=== PATIENT | female | born 1990 | race Caucasian/White ===

== ENCOUNTER → 2017-04-06 | Outpatient (CLI) | payer BC | END | disposition home or self-care (01) | LOC: GMA 16:28 | PROVIDERS: ATTEND Nurse Practitioner Family | DX: R50.9 Fever, unspecified (principal) ==

== ENCOUNTER 2019-03-20 15:28 | Inpatient (IN) | payer BC ==
[2019-03-20] MEDS ORDERED: SODIUM CHLORIDE 0.9% 1000ML 1,000 ML IVS ONE (15:37)
[2019-03-20] MEDS ORDERED: MORPHINE SULFATE INJ 10 MG/ML VIAL IV ONE ×3 (15:37→16:26)
[2019-03-20] MEDS ORDERED: ONDANSETRON ODT 8 MG TAB SL ONE (15:38)
--- NOTE | 2019-03-20 15:42 | ED.PDOC ---
History of Present Illness - General Chief Complaint: Abdominal Pain Stated Complaint: abdominal pain Time Seen by Provider: 03/20/19 15:37 Information Source: patient, family Exam Limitations: no limitations - History of Present Illness Abdominal Pain Onset Location: periumbilical Pain Radiation: no radiation Quality: severe, sharpness Timing/Duration: 1/2 hour Improving Factors: nothing Worsening Factors: movement Associated Symptoms: denies symptoms Review of Systems - Review of Systems Constitutional: States: no symptoms reported. Denies: chills, fever EENTM: States: no symptoms reported. Denies: blurred vision, nose congestion, throat pain Respiratory: States: no symptoms reported. Denies: cough, short of breath Cardiology: States: no symptoms reported. Denies: palpitations Gastrointestinal/Abdominal: States: abdominal pain. Denies: constipation, diarrhea, nausea, vomiting Genitourinary: States: no symptoms reported. Denies: dysuria, hematuria Musculoskeletal: States: no symptoms reported Skin: States: no symptoms reported Past Medical History (General) - Patient Medical History Hx Seizures: No Hx Stroke: No Hx Dementia: No Hx Asthma: No Hx of COPD: No Hx Cardiac Disorders: No Hx Congestive Heart Failure: No Hx Pacemaker: No Hx Hypertension: Yes Hx Thyroid Disease: No Hx Diabetes: No Hx Gastroesophageal Reflux: No Hx Renal Disease: No Hx Cancer: No Hx of HIV: No Hx Hepatitis C: No Hx MRSA: No Surgical History: other - Vaccination History Hx Tetanus, Diphtheria Vaccination: No Hx Influenza Vaccination: Yes Hx Pneumococcal Vaccination: No - Social History Hx Tobacco Use: No Hx Chewing Tobacco Use: No Hx Alcohol Use: No Hx Substance Use: No Hx Substance Use Treatment: No Hx Depression: No Hx Physical Abuse: No Hx Emotional Abuse: No Hx Suspected Abuse: No - Female History Patient : No Family Medical History - Family History Father Living Status: Still Living Hx Family Hypertension: Yes Hx Family Diabetes: Yes Grandparents Living Status: Still Living Hx Cardiac Disease: Yes Mother Living Status: Still Living Hx Family Hypertension: Yes Hx Family;Other: polystistic kidney disease Physical Exam - Physical Exam General Appearance: Obvious distress Eyes, Ears, Nose, Throat Exam: PERRL/EOMI, normal ENT inspection, TMs normal Neck: non-tender, full range of motion, supple, normal inspection Respiratory: chest non-tender, lungs clear, normal breath sounds, no respiratory distress Cardiovascular/Chest: normal peripheral pulses, no edema, no JVD, no murmur, tachycardia Peripheral Pulses: No deficit Gastrointestinal/Abdominal: abnormal bowel sounds - hypoactive, distended, tenderness - TTP periumbilical area with ?mass vs hernia umbilical area Progress - Progress Progress: 03/20/19 16:19 CT results examined (official report pending) CT consistent with exam of incarcerated umbilical hernia. Surgery Dr. Jernigan consult called and he is on his way. Morphine written for pain 03/20/19 16:21 03/20/19 16:59 Surgery consult was able to get it reduced but is concerned with this being a recurrence and because of the severity of the incarceration that it will need to be done urgently. She is to be admitted and surgery to be done tomorrow or soon er if recurs. call center manager ALETHEA Shaw called and will admit. - Results/Orders Results/Orders: 03/20/19 15:37 Abdoment/Pelvis w/o Contrast [CT] Stat Sodium Chloride 0.9% 1000ML [Ns 1000 ml] 1,000 ml IVS ONCE Laboratory Results WBC 6.8 K/mm3 (4.8-10.8) 03/20/19 15:42 RBC 4.17 M/mm3 (4.20-5.40) L 03/20/19 15:42 Hgb 13.6 gm/dL (12.0-16.0) 03/20/19 15:42 Hct 38.9 % (36.0-47.0) 03/20/19 15:42 MCV 93.3 fl (81.0-99.0) 03/20/19 15:42 MCH 32.6 pg (27.0-31.0) H 03/20/19 15:42 MCHC 35.0 g/dL (33.0-37.0) 03/20/19 15:42 RDW 12.5 % (11.5-14.5) 03/20/19 15:42 Plt Count 272 K/mm3 (130-400) 03/20/19 15:42 MPV 7.2 fl (7.40-10.4) L 03/20/19 15:42 Absolute Neuts (auto) 3.70 K/uL (1.8-6.8) 03/20/19 15:42 Absolute Lymphs (auto) 2.40 K/uL (1.0-3.4) 03/20/19 15:42 Absolute Monos (auto) 0.60 K/uL (0.2-0.8) 03/20/19 15:42 Absolute Eos (auto) 0.10 K/uL (0.0-0.4) 03/20/19 15:42 Absolute Basos (auto) 0.00 K/uL (0.0-0.1) 03/20/19 15:42 Neutrophils % 54.0 % (42.0-78.0) 03/20/19 15:42 Lymphocytes % 35.4 % (20.0-50.0) 03/20/19 15:42 Monocytes % 8.1 % (2.0-9.0) 03/20/19 15:42 Eosinophils % 1.8 % (1.0-5.0) 03/20/19 15:42 Basophils % 0.7 % (0.0-2.0) 03/20/19 15:42 Sodium 136 mmol/L (135-145) 03/20/19 15:42 Potassium 3.8 mmol/L (3.6-5.0) 03/20/19 15:42 Chloride 103 mmol/L (101-111) 03/20/19 15:42 Carbon Dioxide 22 mmol/L (21-31) 03/20/19 15:42 Anion Gap 14.8 (12-18) 03/20/19 15:42 BUN 19 mg/dL (7-18) H 03/20/19 15:42 Creatinine 0.86 mg/dL (0.6-1.3) 03/20/19 15:42 BUN/Creatinine Ratio 22.1 (10-20) H 03/20/19 15:42 Random Glucose 101 mg/dL (70-105) 03/20/19 15:42 Serum Osmolality 274.4 mOsm/L (275-295) L 03/20/19 15:42 Calcium 9.3 mg/dL (8.4-10.2) 03/20/19 15:42 Total Bilirubin 0.4 mg/dL (0.2-1.0) 03/20/19 15:42 AST 21 IU/L (10-42) 03/20/19 15:42 ALT 18 IU/L (10-60) 03/20/19 15:42 Alkaline Phosphatase 39 IU/L (42-121) L 03/20/19 15:42 Serum Total Protein 7.3 gm/dL (6.4-8.2) 03/20/19 15:42 Albumin 4.3 g/dl (3.2-5.5) 03/20/19 15:42 Globulin 3.0 gm/dL (2.3-3.5) 03/20/19 15:42 Albumin/Globulin Ratio 1.4 (1.1-1.9) 03/20/19 15:42 Serum HCG, Qual Negative (NEGATIVE) 03/20/19 15:42 Patient Name: QUYNH BECK Gender: Female Date of : 1990 Referring Physician: JOSE MIGUEL SUERO Organization: [facility] Accession Number: [id number] Requested Date: March 20, 2019 15:37 Report Status: Final Requested Procedure: 1 Procedure Description: Abdoment/Pelvis w/o Contrast Modality: CT Findings Reporting MD: Armando Trujillo MD: Not available Dictation Time: Tub Chucker: Not available Rn Paralegal Date: EXAM DESCRIPTION: Abdomen/Pelvis w/o Contrast: Computed Tomography. CLINICAL HISTORY: 28 years Female severe pain incarcerated hernia COMPARISON: None. TECHNIQUE: Spiral-axial scans 2.5 x 2.5 mm intervals through the abdomen and pelvis without oral or IV contrast. Coronal and sagittal 2.0 mm reconstructions. Total Exam DLP: 880.95 mGy-cm. This exam was performed according to our departmental CT dose-optimization program which includes automated exposure control, adjustment of the mA and/or kV according to patient size and/or use of iterative reconstruction technique; to reduce radiation dose to as low as reasonably achievable (ALARA). FINDINGS: Abdominal Wall/Back Soft Tissues: A midline abdominal hernia is noted in the midline raphe measuring approximately 2.2 cm in width and 1.9 cm craniocaudal. A segment of small bowel with mesenteric hernia sac enters the adipose layer. This segment is distended by fluid, with minimal air. Edema in the mesentery within the sac. Edema around the bowel. With outer wall tissue becoming indistinct inferiorly. Sac dimensions 5.1 x 5.2 x 6.8 cm. No fluid collection.. Small Bowel: Minimal fluid and distention of segments proximal to the hernia. No large air-fluid levels. Mesentery: Minimal fatty stranding between the hernia and the stomach abutting the anterior wall. No free air or free fluid in the peritoneum. Terminal Ileum/Cecum: Normal caliber. Normal caliber of the appendix. No inflammatory changes surrounding fat. Colon: Minimal fecal material and gas proximally mostly decompressed remainder of the colon. Pelvic Organs: IUD in customary position in the uterus. Urinary bladder distended with no radiodense stones. Minimal fluid in the cul-de-sac. Ovaries partially visualized. Spine and Bony Pelvis: Negative. Lung bases and pleura: Unremarkable. Liver, stomach, spleen, and adrenal glands: Long axis of the [employer] [address] [place] [address], [address] [place], [place] T [phone] F [phone] [email or web address] - Report exported on Mar 20, 2019 16:47:03 -0500 - Page 2 of 2 right lobe of the liver 20.1 cm. Stomach and remaining solid organs are negative. Pancreas, Gallbladder, and Ducts: Unremarkable. Kidneys and Ureters: Negative. Aorta: Unremarkable. IMPRESSION: 1. Periumbilical hernia which contains mesentery and a segment of small bowel. Edema in the mesentery and around the segment of small bowel which is distended with fluid with slight indistinctness of the outer small bowel wall indicates incarceration and risk for strangulation and obstruction. No free air or free fluid. 2. Minimal hepatomegaly but no ascites or dilated ducts. 3. IUD appears to be customary position and in the endometrium cavity of the superior uterus and fundus. Minimal fluid in the cul-de-sac. Departure - Departure Clinical Impression: Umbilical hernia, incarcerated Disposition: Admit Patient Condition: Fair Departure Forms: ED Discharge - Pt. Copy, Patient Portal Self Enrollment Instructions: DI for Abdominal Pain-Adult Referrals: Stevie Kidd MD [Primary Care Provider] - 1-2 Weeks Home Medications: Ambulatory Orders Labetalol HCl 300 mg PO BID 03/03/15 Decision To Admit - Decistion To Admit Decision to Admit Reason: Admit from ER Decision to Admit Date: 03/20/19 Decision to Admit Time: 17:01
--- NOTE | 2019-03-20 16:46 | CT ---
EXAM DESCRIPTION: Abdomen/Pelvis w/o Contrast: Computed Tomography. CLINICAL HISTORY: 28 years Female severe pain incarcerated hernia COMPARISON: None. TECHNIQUE: Spiral-axial scans 2.5 x 2.5 mm intervals through the abdomen and pelvis without oral or IV contrast. Coronal and sagittal 2.0 mm reconstructions. Total Exam DLP: 880.95 mGy-cm. This exam was performed according to our departmental CT dose-optimization program which includes automated exposure control, adjustment of the mA and/or kV according to patient size and/or use of iterative reconstruction technique; to reduce radiation dose to as low as reasonably achievable (ALARA). FINDINGS: Abdominal Wall/Back Soft Tissues: A midline abdominal hernia is noted in the midline raphe measuring approximately 2.2 cm in width and 1.9 cm craniocaudal. A segment of small bowel with mesenteric hernia sac enters the adipose layer. This segment is distended by fluid, with minimal air. Edema in the mesentery within the sac. Edema around the bowel. With outer wall tissue becoming indistinct inferiorly. Sac dimensions 5.1 x 5.2 x 6.8 cm. No fluid collection.. Small Bowel: Minimal fluid and distention of segments proximal to the hernia. No large air-fluid levels. Mesentery: Minimal fatty stranding between the hernia and the stomach abutting the anterior wall. No free air or free fluid in the peritoneum. Terminal Ileum/Cecum: Normal caliber. Normal caliber of the appendix. No inflammatory changes surrounding fat. Colon: Minimal fecal material and gas proximally mostly decompressed remainder of the colon. Pelvic Organs: IUD in customary position in the uterus. Urinary bladder distended with no radiodense stones. Minimal fluid in the cul-de-sac. Ovaries partially visualized. Spine and Bony Pelvis: Negative. Lung bases and pleura: Unremarkable. Liver, stomach, spleen, and adrenal glands: Long axis of the right lobe of the liver 20.1 cm. Stomach and remaining solid organs are negative. Pancreas, Gallbladder, and Ducts: Unremarkable. Kidneys and Ureters: Negative. Aorta: Unremarkable. IMPRESSION: 1. Periumbilical hernia which contains mesentery and a segment of small bowel. Edema in the mesentery and around the segment of small bowel which is distended with fluid with slight indistinctness of the outer small bowel wall indicates incarceration and risk for strangulation and obstruction. No free air or free fluid. 2. Minimal hepatomegaly but no ascites or dilated ducts. 3. IUD appears to be customary position and in the endometrium cavity of the superior uterus and fundus. Minimal fluid in the cul-de-sac. Electronically signed by: Armando Trujillo MD 03/20/2019 4:44 PM CDT
--- NOTE | 2019-03-20 17:53 | HP ---
SUPERVISING PHYSICIAN: Bladimir Rehman M.D. CHIEF COMPLAINT: Abdominal pain. HISTORY OF PRESENT ILLNESS: This is a 28 year-old female who came to the Emergency Room for severe abdominal pain. The pain was periumbilical in nature. She does have a history of an umbilical hernia. She actually had an umbilical hernia repair about a year ago. She said approximately 2 months ago she had some severe pain but just laid in bed and the pain spontaneously went away. Today, the pain came back severe in nature, quite sharp and would not let up. She felt like she was going to pass out, so she came to the Emergency Room and was seen. In the E. R., CT showed a periumbilical hernia which contained mesentery and segment of small bowel. There was edema in the mesentery and around the segment of small bowel which was distended with fluid and slight indistinctness of the outer small bowel wall indicating incarceration and risk for strangulation and obstruction. The surgeon, Dr. Jernigan, was consulted and actually reduced the hernia in the Emergency Room, and has a plan for surgical intervention tomorrow. However, she can be admitted tonight to be monitored overnight. Her labs were done as well which showed no elevation of white count and an unremarkable chemistry. PAST MEDICAL HISTORY: 1. Hypertension. PAST SURGICAL HISTORY: 1. Tubal ligation. 2. Umbilical hernia repair. 3. IUD placement. CURRENT MEDICATIONS: 1. Labetalol 300 mg b.i.d. ALLERGIES: PEANUT-CONTAINING PRODUCTS. FAMILY HISTORY: Reviewed and noncontributory. SOCIAL HISTORY: No drinking, smoking or illicit drugs. REVIEW OF SYSTEMS: CONSTITUTIONAL: No fever or chills. No recent weight loss or weight gain. HEENT: No headaches, vision changes, ear pain, nasal congestion or throat pain. RESPIRATORY: No cough, hemoptysis or pleuritic chest pain. CARDIOVASCULAR: No chest pain, palpitations or peripheral edema. GASTROINTESTINAL: Positive for some nausea. No vomiting. No diarrhea. No constipation. Positive for abdominal pain as discussed above. GENITOURINARY: No dysuria, frequency or flank pain. MUSCULOSKELETAL: No muscle cramps, joint pain or joint swelling. ENDOCRINE: No polydipsia, polyuria or polyphagia. No heat or cold intolerance. HEMATOLOGIC: No easy bruising or transfusion reaction. NEUROLOGIC: No seizures, syncope or paresthesias. PHYSICAL EXAMINATION: VITAL SIGNS: Blood pressure 127/91, heart rate 69, respiratory rate 20, temperature 96.2, oxygen saturation 100%. GENERAL: Ms. Stinson is a 28 year-old female in no active distress currently. CHEST: Lungs are clear to auscultation bilaterally. CARDIOVASCULAR: Regular rate and rhythm. Normal S1 and S2. ABDOMEN: Soft. Positive bowel sounds. Some slight periumbilical tenderness to palpation, but there is no firmness. No rebound tenderness. GENITOURINARY: Exam is deferred. EXTREMITIES: Lower extremities with no edema. NEUROLOGIC: The patient is alert and oriented. LABORATORY: Labs and films are as discussed in the History of Present Illness. ASSESSMENT: 1. Incarcerated umbilical hernia status post reduction in the Emergency Room. 2. Hypertension. PLAN: Will admit the patient. Can have clear liquids tonight. NPO after midnight. Plan for surgical intervention by Dr. Jernigan tomorrow. I will resume her home medication of Labetalol. Will ensure pain control and if there is any decompensation, will contact Dr. Jernigan. #[id number] [facility]
[2019-03-20] MEDS ORDERED: SODIUM CHLORIDE 0.9% (FLUSH) 10 ML SYG IV PRN (18:40)
[2019-03-20] MEDS ORDERED: MORPHINE SULFATE INJ 10 MG/ML VIAL IV PRN (18:40)
[2019-03-20] MEDS ORDERED: IV SET AND CAP CHANGE INJ INJ SCH (19:00)
[2019-03-20] MEDS: LACTATED RINGERS 1,000 ML IVS PRN (19:30)
[2019-03-21] MEDS ORDERED: SODIUM CHLORIDE 0.9% 1000ML 0 ML ONE (01:57)
[2019-03-21] MEDS: LACTATED RINGERS 1,000 ML IVS PRN (02:03)
[2019-03-21] MEDS ORDERED: KETOROLAC TROMETHAMINE INJ 30 MG/ML VIAL IV ONE (10:00)
[2019-03-21] MEDS ORDERED: DEXAMETHASONE INJ 10 MG/ML VIAL IV ONE (10:00)
[2019-03-21] MEDS ORDERED: ONDANSETRON INJ 4 MG/2 ML VIAL IV ONE (10:00)
[2019-03-21] MEDS ORDERED: ceFAZolin SODIUM 1 GM VIAL IVPB ONE (10:00)
[2019-03-21] MEDS ORDERED: LIDOCAINE 1% 10 ML VIAL INJ ONE (10:00)
[2019-03-21] MEDS ORDERED: PROPOFOL 200 MG/20 ML VIAL IV ONE (10:00)
[2019-03-21] MEDS ORDERED: BUPIVACAINE 0.5% W/EPI 30 ML VIAL INJ ONE ×2 (10:18→11:17)
[2019-03-21] MEDS ORDERED: ONDANSETRON INJ 4 MG/2 ML VIAL ONE (10:49)
[2019-03-21] MEDS ORDERED: fentaNYL CITRATE INJ 50 MCG/ML AMP ONE ×2 (10:50→12:16)
[2019-03-21] MEDS ORDERED: MIDAZOLAM INJ 2 MG/2 ML VIAL ONE (10:50)
[2019-03-21] MEDS ORDERED: ceFAZolin SODIUM 1 GM VIAL INJ ONE (11:05)
[2019-03-21] MEDS ORDERED: LACTATED RINGERS 1,000 ML ONE (11:32)
[2019-03-21] MEDS ORDERED: LACTATED RINGERS 1,000 ML IVS ONE (12:05)
[2019-03-21] MEDS ORDERED: fentaNYL CITRATE INJ 50 MCG/ML AMP IV ONE (12:43)
[2019-03-21 16:00] VITALS: BP 128/85; TEMP 98.6; O2SAT 98
[2019-03-21] MEDS ORDERED: HYDROCOD/APAP 5/325 (ER DISP) #3 TAB PO ONE (18:43)
--- NOTE | 2019-03-22 14:58 | OP ---
DATE OF PROCEDURE: 03/22/19 PREOPERATIVE DIAGNOSIS: 1. Incarcerated incisional hernia. POSTOPERATIVE DIAGNOSIS: 1. Incarcerated incisional hernia. PROCEDURE: 1. Repair of incarcerated incisional hernia. CPT 13246 SURGEON: Stephan Jernigan MD. ANESTHESIA: General and local. FINDINGS: She had an incarcerated incisional hernia. Previous sutures of abraded Nylon were seen. The bowel was viable. There was minimal intraabdominal adhesions. The sac was removed. COMPLICATIONS: None. ESTIMATED BLOOD LOSS: Minimal. Onlay woven Prolene mesh was used. PLAN: Discharge. INDICATION: The patient with a history of a tubal ligation and a hernia repair some time ago. I reviewed that Operative Report and no mesh was used at the time. She presented with a recurrence of the hernia. She came to the Emergency Room yesterday with incarceration of bowel. It was able to be reduced with little difficulty in the Emergency Room, but still at risk for strangulation and even on this morning's exam, it was back although not as tender and firm. Complete informed consent was obtained. PROCEDURE: She was brought Operative Suite and placed in supine position. General anesthesia was induced. She was prepped and draped in sterile fashion. Curvilinear incision was made below the umbilicus. Subcutaneous tissues were taken down. We identified the hernia sac and carefully entered the sac. I was able to reduce the incarcerated contents and take down a few adhesions. The sac was removed to the fascial edges. The defect itself was about 3 to 4 cm. This was then closed transversely with interrupted #1 PDS sutures. We tried the round hernia coded mesh that we have, but it would not lay flat intraabdominally as it did not have a retention ring and to not risk bowel getting up in there, we decided to use an Onlay. After the defect was closed, the finely woven Prolene mesh was trimmed to give us good overlap beyond the apices and laterally and it was secured with Vicryl at the apices, corners and lateral edges for a nice cover. I then used 3-0 Vicryl to close the empty space over it, attaching it to the top of the mesh and then another layer of Vicryl. The skin was closed with a running 4-0 Monocryl. She tolerated the procedure and was then awakened and taken to the Recovery Room in stable condition where she will be discharged post recovery. #[id number] [facility]TDD
--- NOTE | 2019-03-22 16:42 | DS ---
REASON FOR ADMISSION: Incarcerated incisional hernia. CONSULTANTS: Internal Medicine PROCEDURES: Repair of incarcerated incisional hernia. HOSPITAL COURSE: The patient came to the Emergency Room in severe pain and evidence of early obstruction with incarcerated incisional hernia. It was very firm and tender. No overlying skin changes. We were able to reduce it in the Emergency Room to avoid bowel necrosis, but she still needed it fixed as the hernia was persistent and somewhat incarcerated and had a risk of a repeat incarceration, so she was admitted. Then planned to get this repaired. Please see Operative Report for complete details of repair. Postoperatively she did well without any complication and was able to be discharged. DISCHARGE INSTRUCTIONS: Discharged home. Regular diet. Shower in 24 hours. Remove bandage in about 5 days. She will be given a prescription for Tylenol with codeine. FINAL DIAGNOSIS: 1. Incarcerated incisional hernia post repair. Prognosis is good. #[id number] [facility]TDD
== END 2019-03-21 17:00 | disposition home or self-care (01) | DRG 355 ==
LOC: ER 15:28 → MS 17:48
PROVIDERS: ADMIT Nurse Practitioner; ATTEND Surgery
PROC: 0WUF0JZ Supplement Abdominal Wall with Synthetic Substitute, Open Approach (ICD-10-PCS; principal; 2019-03-20)
DX: K43.0 Incisional hernia with obstruction, without gangrene (principal); I10 Essential (primary) hypertension; Z98.890 Other specified postprocedural states; Z79.899 Other long term (current) drug therapy; Z91.010 Allergy to peanuts

== ENCOUNTER 2020-04-11 21:37 | Emergency (ER) | payer BC ==
--- NOTE | 2020-04-11 22:09 | ED.PDOC ---
History of Present Illness - General Time Seen by Provider: 04/11/20 22:09 - History of Present Illness Initial Comments: 29 yo F with right flank pain x 3 days. states she has this before with her prior urine infections. no fever, n/v/d. has notice some blood in her urine, does have dysuria. was recently on augmentin for a strep infection. flank pain is constant. Allergies/Adverse Reactions: Allergies Peanut-containing Drug Products Adverse Reaction (Verified 05/20/14 08:25) Home Medications: Ambulatory Orders Labetalol HCl [Labetalol Hydrochloride] 300 mg PO BID 03/03/15 Multiple Vitamin [Multi Vitamin] 1 tab PO DAILY 03/20/19 Levofloxacin [Levaquin] 750 mg PO DAILY #10 tablet 04/11/20 Review of Systems - Review of Systems Constitutional: Denies: fever, malaise EENTM: Denies: blurred vision, double vision, ear discharge, nose congestion Respiratory: Denies: cough, orthopnea, short of breath, stridor Cardiology: Denies: chest pain, edema, palpitations, syncope Gastrointestinal/Abdominal: Denies: abdominal pain, constipation, diarrhea, nausea Genitourinary: States: dysuria, frequency, hematuria. Denies: discharge Musculoskeletal: States: back pain. Denies: joint pain, muscle pain Skin: Denies: change in hair/nails, dryness, lesions, rash Neurological: Denies: headache, numbness, paresthesia, seizure, tingling, tremors, weakness Endocrine: Denies: unexplained weight gain, unexplained weight loss Hematologic/Lymphatic: Denies: blood clots, easy bleeding, easy bruising Past Medical History (General) - Patient Medical History Hx Seizures: No Hx Stroke: No Hx Dementia: No Hx Asthma: No Hx of COPD: No Hx Cardiac Disorders: No Hx Congestive Heart Failure: No Hx Pacemaker: No Hx Hypertension: Yes Hx Thyroid Disease: No Hx Diabetes: No Hx Gastroesophageal Reflux: No Hx Renal Disease: No Hx Cancer: No Hx of HIV: No Hx Hepatitis C: No Hx MRSA: No - Vaccination History Hx Tetanus, Diphtheria Vaccination: No Hx Influenza Vaccination: Yes Hx Pneumococcal Vaccination: No - Social History Hx Tobacco Use: No Hx Chewing Tobacco Use: No Hx Alcohol Use: No Hx Substance Use: No Hx Substance Use Treatment: No Hx Depression: No Hx Physical Abuse: No Hx Emotional Abuse: No Hx Suspected Abuse: No - Female History Patient : No Family Medical History - Family History Father Living Status: Still Living Hx Family Hypertension: Yes Hx Family Diabetes: Yes Grandparents Living Status: Still Living Hx Cardiac Disease: Yes Mother Living Status: Still Living Hx Family Hypertension: Yes Hx Family;Other: polystistic kidney disease Physical Exam - Physical Exam General Appearance: Alert, Comfortable, No apparent distress Eyes, Ears, Nose, Throat Exam: normal ENT inspection Neck Exam: non-tender, full range of motion, normal alignment, normal inspection Cardiovascular/Respiratory: regular rate, rhythm, no M/R/G, normal peripheral pulses, no JVD, normal breath sounds, no respiratory distress Peripheral Pulses: radial,right: 2+, radial,left: 2+ Gastrointestinal/Abdominal: normal bowel sounds, non tender, soft, no organomegaly, no pulsatile mass Back Exam: normal inspection, no CVA tenderness, CVA tenderness (R) Extremity Exam: no evidence of injury, normal range of motion, non-tender, no pedal edema Neurologic: clam shucker II-XII nml as tested, no motor/sensory deficits, alert, normal mood/affect, oriented x 3 Skin Exam: normal color, warm/dry Progress - Progress Progress: 04/11/20 23:51 patient given IVF, toradol and ceftriaxone. discussed the following Ct findings with patient - No renal/ureteral stone or hydroureteronephrosis seen bilaterally. An underl umu renal mass and pyelonephritis cannot be ruled out without intravenous contrast. - Prominent follicles/small cysts in each ovary, largest appears to be an approximately 2.2 cm cyst in the right ovary which may be somewhat complex. Associated with a small amount of free fluid in the pelvis, especially on the right. Recommend follow-up ultrasound. - Possible irregular urinary bladder wall thickening versus artifact related to under distention. Suspicious for nonspecific cystitis, however, clinical correlation is suggested. - At least moderate fecal retention and patchy colonic spasm without apparent bowel obstruction. recommend follow up with pcp on tuesday to discuss pelvic us and follow up renal imaging. patient has no fever or signs of systemic infection, I do not feel a repeat CT with contrast is indicated at this time. 04/11/20 22:22 Sodium Chloride 0.9% 1000ML [Ns 1000 ml] 1,000 ml IVS STAT 04/11/20 22:34 URINE CULTURE W/COLONY COUNT Stat Laboratory Results WBC 12.3 K/mm3 (4.8-10.8) H 04/11/20 22:33 RBC 4.34 M/mm3 (4.20-5.40) 04/11/20 22:33 Hgb 13.9 gm/dL (12.0-16.0) 04/11/20 22:33 Hct 39.5 % (36.0-47.0) 04/11/20 22:33 MCV 90.9 fl (81.0-99.0) 04/11/20 22:33 MCH 32.1 pg (27.0-31.0) H 04/11/20 22:33 MCHC 35.3 g/dL (33.0-37.0) 04/11/20 22:33 RDW 12.2 % (11.5-14.5) 04/11/20 22:33 Plt Count 292 K/mm3 (130-400) 04/11/20 22:33 MPV 6.8 fl (7.40-10.4) L 04/11/20 22:33 Absolute Neuts (auto) 10.20 K/uL (1.8-6.8) H 04/11/20 22:33 Absolute Lymphs (auto) 1.20 K/uL (1.0-3.4) 04/11/20 22:33 Absolute Monos (auto) 0.90 K/uL (0.2-0.8) H 04/11/20 22:33 Absolute Eos (auto) 0.00 K/uL (0.0-0.4) 04/11/20 22:33 Absolute Basos (auto) 0.00 K/uL (0.0-0.1) 04/11/20 22:33 Neutrophils % 82.8 % (42.0-78.0) H 04/11/20 22:33 Lymphocytes % 9.5 % (20.0-50.0) L 04/11/20 22:33 Monocytes % 7.1 % (2.0-9.0) 04/11/20 22:33 Eosinophils % 0.4 % (1.0-5.0) L 04/11/20 22:33 Basophils % 0.2 % (0.0-2.0) 04/11/20 22:33 Sodium 137 mmol/L (135-145) 04/11/20 22:33 Potassium 3.4 mmol/L (3.6-5.0) L 04/11/20 22:33 Chloride 101 mmol/L (101-111) 04/11/20 22:33 Carbon Dioxide 28 mmol/L (21-31) 04/11/20 22:33 Anion Gap 11.4 (12-18) L 04/11/20 22:33 BUN 13 mg/dL (7-18) 04/11/20 22:33 Creatinine 0.94 mg/dL (0.6-1.3) 04/11/20 22:33 BUN/Creatinine Ratio 13.8 (10-20) 04/11/20 22:33 Random Glucose 101 mg/dL (70-105) 04/11/20 22:33 Serum Osmolality 274.1 mOsm/L (275-295) L 04/11/20 22:33 Calcium 9.0 mg/dL (8.4-10.2) 04/11/20 22:33 Total Bilirubin 0.6 mg/dL (0.2-1.0) 04/11/20 22:33 AST 15 IU/L (10-42) 04/11/20 22:33 ALT 14 IU/L (10-60) 04/11/20 22:33 Alkaline Phosphatase 51 IU/L (42-121) 04/11/20 22:33 Serum Total Protein 7.6 gm/dL (6.4-8.2) 04/11/20 22:33 Albumin 4.3 g/dl (3.2-5.5) 04/11/20 22:33 Globulin 3.3 gm/dL (2.3-3.5) 04/11/20 22:33 Albumin/Globulin Ratio 1.3 (1.1-1.9) 04/11/20 22:33 Urine Color Yellow (Yellow) 04/11/20 22:34 Urine Appearance Cloudy (Clear) 04/11/20 22:34 Urine pH 6.0 (4.5-7.8) 04/11/20 22:34 Ur Specific [place] 1.020 (1.005-1.030) 04/11/20 22:34 Urine Protein >=300 mg/dL H 04/11/20 22:34 Urine Glucose (UA) Negative mg/dL (Negative) 04/11/20 22:34 Urine Ketones Negative mg/dL (NEGATIVE) 04/11/20 22:34 Urine Blood Large (Negative) H 04/11/20 22:34 Urine Nitrite Positive H 04/11/20 22:34 Urine Bilirubin Negative (NEGATIVE) 04/11/20 22:34 Urine Urobilinogen 0.2 mg/dL (0.2-1.0) 04/11/20 22:34 Ur Leukocyte Esterase Small (Negative) H 04/11/20 22:34 Urine RBC Tntc /hpf H 04/11/20 22:34 Urine WBC Tntc /hpf H 04/11/20 22:34 Ur Epithelial Cells 1-3 /hpf 04/11/20 22:34 Urine Bacteria Obscured by rbc's H 04/11/20 22:34 Urine HCG, Qual Negative (NEGATIVE) 04/11/20 22:33 The data reviewed when caring for this patient included: nurse notes, prior records, etc. The history and assessments from nurses notes were reviewed and considered, and the patient's home medication list was also reviewed and considered. My assessment and the results of testing completed here in the ED were discussed with the patient/family. All questions were answered, and they express understanding of my assessment and the plan. They have been instructed to return if their symptoms worsen, and have been asked to follow up with their primary care physician to recheck today's presenting complaint. Strict r eturn precautions given. I have reviewed medication, benefits, alternatives and side effects. Patient decided to proceed with medication. VSS, patient was discharged home in stable condition. Bonnie Phillips DO #[id number] Departure - Departure Clinical Impression: Pyelonephritis Ovarian cyst Qualifiers: Laterality: right Qualified Code(s): N83.201 - Unspecified ovarian cyst, right side Time of Disposition: 23:51 Disposition: Discharge to Home or Self Care Condition: Good Instructions: Kidney Infection, Urinary Tract Infection, Adult (DC), Ovarian Cyst (DC), Kidney Infection (DC) Referrals: OPAL HOPKINS NP [Primary Care Provider] - 1-5 Days Prescriptions: Levofloxacin [Levaquin] 750 mg PO DAILY #10 tablet Home Medications: Ambulatory Orders Labetalol HCl [Labetalol Hydrochloride] 300 mg PO BID 03/03/15 Multiple Vitamin [Multi Vitamin] 1 tab PO DAILY 03/20/19 Levofloxacin [Levaquin] 750 mg PO DAILY #10 tablet 04/11/20
[2020-04-11] MEDS ORDERED: KETOROLAC TROMETHAMINE INJ 30 MG/ML VIAL IV ONE (22:22)
[2020-04-11] MEDS ORDERED: SODIUM CHLORIDE 0.9% 1000ML 1,000 ML IVS PRN (22:22)
[2020-04-11] MEDS ORDERED: cefTRIAXone SODIUM 1 GM in SODIUM CHL 0.9% 50ML MIN-BAG+ 50 ML IVPB ONE (22:53)
[2020-04-11] MEDS ORDERED: PHENAZOPYRIDINE HCL 200 MG TAB PO ONE (23:44)
--- NOTE | 2020-04-12 00:07 | CT ---
EXAM: CT Abdomen and Pelvis Without Intravenous Contrast CLINICAL HISTORY: 29 years old Female; flank pain. TECHNIQUE: Axial computed tomography images of the abdomen and pelvis without intravenous contrast. Sagittal and coronal reformatted images were created and reviewed. This CT exam was performed using one or more of the following dose reduction techniques: automated exposure control, adjustment of the mA and/or kV according to patient size, and/or use of iterative reconstruction technique. COMPARISON: Similar examination performed 03/20/2019. FINDINGS: LIMITATIONS: Study provided limited by lack of intravenous contrast. LUNG BASES: Lung bases clear. ABDOMEN: LIVER: Unremarkable. GALLBLADDER AND BILE DUCTS: Normal without CT evidence of acute cholecystitis. PANCREAS: Unremarkable. No ductal dilation. SPLEEN: Spleen prominent but stable from previous and no new focal abnormality seen. ADRENALS: Unremarkable. No mass. KIDNEYS AND URETERS: No renal/ureteral stone or hydroureteronephrosis seen bilaterally. An underlying renal mass and pyelonephritis cannot be ruled out without intravenous contrast. STOMACH AND BOWEL: At least moderate fecal retention and patchy colonic spasm without apparent bowel obstruction. PELVIS: APPENDIX: No CT findings to suggest acute appendicitis. BLADDER: Possible irregular urinary bladder wall thickening versus artifact related to underdistention. REPRODUCTIVE: Prominent follicles/small cysts in each ovary, largest appears to be an approximately 2.2 cm cyst in the right ovary which may be somewhat complex. ABDOMEN and PELVIS: INTRAPERITONEAL SPACE: Small amount of free fluid in the pelvis, especially on the right. BONES/JOINTS: No acute bony abnormality seen. SOFT TISSUES: Interval repair of a left paraumbilical hernia seen previously. VASCULATURE: No acute abnormality seen. LYMPH NODES: No pathologic lymphadenopathy identified. TUBES, LINES AND DEVICES: Noted again is an intrauterine device which appears to be in satisfactory position. IMPRESSION: - No renal/ureteral stone or hydroureteronephrosis seen bilaterally. An underlying renal mass and pyelonephritis cannot be ruled out without intravenous contrast. - Prominent follicles/small cysts in each ovary, largest appears to be an approximately 2.2 cm cyst in the right ovary which may be somewhat complex. Associated with a small amount of free fluid in the pelvis, especially on the right. Recommend follow-up ultrasound. - Possible irregular urinary bladder wall thickening versus artifact related to underdistention. Suspicious for nonspecific cystitis, however, clinical correlation is suggested. - At least moderate fecal retention and patchy colonic spasm without apparent bowel obstruction. - Interval repair of a left paraumbilical hernia seen previously. - Noted again is an intrauterine device which appears to be in satisfactory position. - Study provided limited by lack of intravenous contrast. Thank you for allowing us to participate in the care of this patient. Electronically signed by: Gilles Hope MD 04/12/2020 12:05 AM CDT
[2020-04-12 00:39] VITALS: O2SAT 96
[2020-04-12 00:41] VITALS: BP 111/66; TEMP 97.8
== END 2020-04-12 00:30 | disposition home or self-care (01) ==
LOC: ER 21:37
DX: N12 Tubulo-interstitial nephritis, not specified as acute or chronic (principal); N83.201 Unspecified ovarian cyst, right side; K59.00 Constipation, unspecified; I10 Essential (primary) hypertension; Z79.899 Other long term (current) drug therapy; Z87.440 Personal history of urinary (tract) infections
CPT/HCPCS: 74176; 80053; 81001; 81025; 85025; 87086; 87088; 87186; J0696; J1885; J7030; J7050